=== PATIENT | male | born 1990 | race Caucasian/White ===

== ENCOUNTER 2019-05-15 10:18 | Emergency (ER) | payer OTHER ==
[~2019-05-15] VITALS: Ht 167.6 cm; Wt 72.8 kg
[2019-05-15 12:37] LABS: INFLUENZA A AMPLIFICATION NEGATIVE (NEGATIVE); INFLUENZA B AMPLIFICATION NEGATIVE (NEGATIVE)
[2019-05-15 13:41] VITALS: BP 130/81
[2019-05-15] MEDS ORDERED: AUGM875T28 PO (13:50)
== END 2019-05-15 14:03 | disposition home or self-care (01) ==
LOC: M ED 10:18
DX: J01.90 Acute sinusitis, unspecified (principal); M79.10 Myalgia, unspecified site; R68.83 Chills (without fever); F17.210 Nicotine dependence, cigarettes, uncomplicated

== ENCOUNTER 2019-06-04 10:02 | Emergency (ER) | payer OTHER ==
[~2019-06-04] VITALS: Ht 167.6 cm; Wt 71.5 kg
[~2019-06-04 10:02] MED LIST: AUGM875T28 PO
[2019-06-04] MEDS ORDERED: AFRIN NASAL SPRAY (10:09)
--- NOTE | 2019-06-04 11:47 | REP ---
Chest x-ray: Two views. History: Cough x2 weeks . Comparison study: No comparison study . Findings: The lungs are well inflated and free of infiltrate. The pleural angles are sharp. The heart size is normal. Pulmonary vasculature is not increased. No significant bony abnormality is seen. Impression: Negative chest x-ray. Electronically Signed by Jaime Patel MD 06/04/2019 11:38 A
[2019-06-04 12:08] LABS: INFLUENZA A AMPLIFICATION NEGATIVE (NEGATIVE); INFLUENZA B AMPLIFICATION NEGATIVE (NEGATIVE)
[2019-06-04 12:50] LABS: BASO # 0.1 10^3/uL (0.0-0.2); BASO % 0.5 % (0.0-1.0); EOS # 0.4 10^3/uL (0.0-0.5); EOS % 3.8 % (0.0-3.0); HEMATOCRIT 44.2 % (42.0-52.0); HEMOGLOBIN 14.6 g/dl (13.5-17.5); LYMPH # 3.2 10^3/uL (1.5-5.0); LYMPH % 30.2 % (24.0-44.0); MEAN CORPUSCULAR HEMOGLOBIN 28.9 pg (27.0-33.0); MEAN CORPUSCULAR VOLUME 87.4 fl (80.0-96.0); MONO # 0.7 10^3/uL (0.0-0.8); MONO % 6.3 % (0.0-5.0); NEUTROPHILS # 6.2 10^3/uL (1.5-8.5); NEUTROPHILS % 58.7 % (36.0-66.0); PLATELET COUNT, AUTOMATED 257 10^3/uL (150-450); RED BLOOD COUNT 5.06 10^6/uL (4.30-6.10); WHITE BLOOD COUNT 10.5 10^3/uL (4.0-10.0)
[2019-06-04 13:28] LABS: MONO REFLEX EBV COMP NEGATIVE (NEGATIVE)
[2019-06-04 13:58] VITALS: BP 122/85
[2019-06-05 14:09] LABS: EBV AB TO NUCLEAR ANTIGEN 79.6 U/mL (0.0-17.9); EBV VIRAL CAPSID AG IgM <36.0 U/mL (0.0-35.9)
== END 2019-06-04 13:59 | disposition home or self-care (01) ==
LOC: M ED 10:02
DX: J06.9 Acute upper respiratory infection, unspecified (principal); B34.9 Viral infection, unspecified; F17.210 Nicotine dependence, cigarettes, uncomplicated

== ENCOUNTER 2020-01-19 21:11 | Emergency (ER) | payer OTHER ==
[~2020-01-19] VITALS: Ht 167.6 cm; Wt 66.3 kg
[~2020-01-19 21:11] MED LIST changes: +AFRIN NASAL SPRAY
[2020-01-19] MEDS ORDERED: ACET1TAB16 (21:35)
--- NOTE | 2020-01-19 22:21 | REPVR ---
PROCEDURE INFORMATION: Exam: XR Left Knee Exam date and time: 01/19/2020 10:08 PM Age: 29 years old Clinical indication: Other: Post op pain; Prior surgery; Additional info: Knee surgery with pain now TECHNIQUE: Imaging protocol: XR Left knee. Views: 1 or 2 views. COMPARISON: No relevant prior studies available. FINDINGS: Bones/joints: No acute fracture or dislocation is identified. There is no osseous erosion or cortical destruction. Small sclerotic density in the distal femur is probably a bone island. Soft tissues: Mild fullness of the soft tissues in the suprapatellar region is noted. The soft tissues appear otherwise grossly unremarkable. IMPRESSION: Mild suprapatellar soft tissue fullness suggesting effusion and/or synovial hypertrophy. Electronically signed by: Jose Mckay On 01/19/2020 22:21:01 PM
[2020-01-19 23:46] LABS: BASO % 0.2 % (0.0-1.0); EOS # 0.2 10^3/uL (0.0-0.5); EOS % 2.2 % (0.0-3.0); HEMATOCRIT 44.5 % (42.0-52.0); HEMOGLOBIN 14.7 g/dl (13.5-17.5); LYMPH # 2.8 10^3/uL (1.5-5.0); LYMPH % 28.9 % (24.0-44.0); MEAN CORPUSCULAR HEMOGLOBIN 29.5 pg (27.0-33.0); MEAN CORPUSCULAR VOLUME 89.2 fl (80.0-96.0); MONO # 0.6 10^3/uL (0.0-0.8); MONO % 6.5 % (0.0-5.0); NEUTROPHILS # 5.9 10^3/uL (1.5-8.5); NEUTROPHILS % 61.7 % (36.0-66.0); PLATELET COUNT, AUTOMATED 244 10^3/uL (150-450); RED BLOOD COUNT 4.99 10^6/uL (4.30-6.10); WHITE BLOOD COUNT 9.5 10^3/uL (4.0-10.0)
--- NOTE | 2020-01-20 00:01 | REPVR ---
PROCEDURE INFORMATION: Exam: US Duplex Left Lower Extremity Veins, Limited Exam date and time: 01/19/2020 11:49 PM Age: 29 years old Clinical indication: Pain; Leg, lower; Left; Prior surgery; Surgery date: 3-7 days post-operative; Surgery type: Knee; Additional info: R/O dvt/surgery 01/11 TECHNIQUE: Imaging protocol: Real-time Duplex ultrasound of the Left Lower Extremity with 2-D salgado scale, color Doppler flow and spectral waveform analysis with image documentation. Limited exam focused on the left lower extremity veins. COMPARISON: No relevant prior studies available. FINDINGS: Left deep veins: Unremarkable. The common femoral, femoral, proximal profunda femoral and popliteal veins are patent without thrombus. Normal Doppler waveforms. Normal compressibility and/or augmentation response. Left superficial veins: Unremarkable. Saphenofemoral junction is patent without thrombus. Soft tissues: Unremarkable. IMPRESSION: No deep venous thrombus demonstrated in the left lower extremity. Electronically signed by: Jose Mckay On 01/20/2020 00:00:49 AM
[2020-01-20 00:06] LABS: BLOOD UREA NITROGEN 10 MG/DL (7-18); C REACTIVE PROTEIN QUANTITATIV 0.88 MG/DL (0.00-0.30); CARBON DIOXIDE LEVEL 29 MEQ/L (21-32); CHLORIDE LEVEL 107 MEQ/L (98-107); CREATININE FOR GFR 0.83 MG/DL (0.70-1.30); ERYTHROCYTE SEDIMENTATION RATE 2 mm/hr (0-15); GLOMERULAR FILTRATION RATE > 60.0 (>60); GLUCOSE, FASTING 101 MG/DL (70-100); POTASSIUM SERUM 3.6 MEQ/L (3.5-5.1); SODIUM LEVEL 140 MEQ/L (136-145)
[2020-01-20 00:35] VITALS: BP 129/78
== END 2020-01-20 00:36 | disposition home or self-care (01) ==
LOC: M ED 21:11
DX: G89.18 Other acute postprocedural pain (principal); M25.562 Pain in left knee; M79.89 Other specified soft tissue disorders; F90.9 Attention-deficit hyperactivity disorder, unspecified type; F43.10 Post-traumatic stress disorder, unspecified; F41.9 Anxiety disorder, unspecified; G47.00 Insomnia, unspecified; F17.200 Nicotine dependence, unspecified, uncomplicated

== ENCOUNTER 2020-03-20 21:24 | Emergency (ER) | payer OTHER ==
[~2020-03-20] VITALS: Ht 167.6 cm; Wt 66.0 kg
[~2020-03-20 21:24] MED LIST changes: +ACET1TAB16
[2020-03-20 21:25] VITALS: BP 118/77
== END 2020-03-20 23:09 | disposition left against medical advice (07) ==
LOC: M ED 21:24
DX: Z53.21 Procedure and treatment not carried out due to patient leaving prior to being seen by health care provider (principal)

== ENCOUNTER 2020-07-17 13:30 | Emergency (ER) | payer OTHER ==
[~2020-07-17] VITALS: Ht 167.6 cm; Wt 68.9 kg
[2020-07-17] MEDS ORDERED: TRAM50TA2 (13:39)
[2020-07-17] MEDS ORDERED: NS 1,000 ML IV ONE (14:05)
[2020-07-17] MEDS ORDERED: GI COCKTAIL 50ML BTL(HYOSCYAMINE/MAALOX/LIDOCAINE VISCOUS)(1:3:1) PO ONE (14:05)
--- NOTE | 2020-07-17 14:32 | REP ---
INDICATION: Abdominal Pain. COMPARISON: A PA and lateral chest dated 06/04/2019. TECHNIQUE: PA view of the chest and supine upright views of the abdomen FINDINGS: PA chest: The lung butler are clear. Cardiac size is normal. The patrica, mediastinum, and skeletal structures are unremarkable. There is no free subdiaphragmatic air. There is no change from 06/04/2019. Negative PA chest. Supine upright abdomen: There are no comparisons. The bowel gas pattern is normal. There are no calcifications. The skeletal structures and soft tissues otherwise are unremarkable. Negative supine and upright abdomen IMPRESSION: Negative PA chest. Normal bowel gas pattern. <Electronically signed by Girish Julio > 07/17/20 [id number]
[2020-07-17 15:04] LABS: BASO # 0.1 10^3/uL (0.0-0.2); BASO % 0.6 % (0.0-1.0); EOS # 0.2 10^3/uL (0.0-0.5); EOS % 2.3 % (0.0-3.0); HEMATOCRIT 46.8 % (42.0-52.0); HEMOGLOBIN 15.3 g/dl (13.5-17.5); LYMPH # 2.1 10^3/uL (1.5-5.0); MEAN CORPUSCULAR HEMOGLOBIN 29.5 pg (27.0-33.0); MEAN CORPUSCULAR HGB CONC 32.7 g/dl (32.0-36.5); MEAN CORPUSCULAR VOLUME 90.3 fl (80.0-96.0); MONO # 0.6 10^3/uL (0.0-0.8); MONO % 7.3 % (2.0-8.0); NEUTROPHILS % 63.3 % (36.0-66.0); PLATELET COUNT, AUTOMATED 232 10^3/uL (150-450); RED BLOOD COUNT 5.18 10^6/uL (4.30-6.10); WHITE BLOOD COUNT 7.9 10^3/uL (4.0-10.0)
[2020-07-17 15:31] LABS: ALT/SGPT 25 U/L (12-78); BILIRUBIN,DIRECT 0.2 MG/DL (0.0-0.2); BILIRUBIN,TOTAL 0.5 MG/DL (0.2-1.0); BLOOD UREA NITROGEN 6 MG/DL (7-18); CALCIUM LEVEL 9.1 MG/DL (8.5-10.1); CARBON DIOXIDE LEVEL 29 MEQ/L (21-32); CHLORIDE LEVEL 108 MEQ/L (98-107); CK-MB VALUE MASS 1.2 NG/ML (<3.6); CPK CREATINE PHOSPHOKINASE 127 U/L (39-308); CREATININE FOR GFR 0.71 MG/DL (0.70-1.30); GLOMERULAR FILTRATION RATE > 60.0 (>60); GLUCOSE, FASTING 83 MG/DL (70-100); LIPASE 142 U/L (73-393); MB/CK RELATIVE INDEX 0.94 (< OR =4); POTASSIUM SERUM 4.1 MEQ/L (3.5-5.1); SODIUM LEVEL 142 MEQ/L (136-145); TOTAL PROTEIN 7.1 GM/DL (6.4-8.2); TROPONIN I < 0.02 NG/ML (< 0.10)
[2020-07-17 16:18] VITALS: BP 126/81
--- NOTE | 2020-07-18 17:29 | ECGEPIP ---
[facility] - ED Test Date: 2020-07-17 Pat Name: LALO MORENO Department: Room: - Gender: Male Block Hand: ORQUIDEA : 1990 Requested By: CAT MEJIA Order Number: [id number] Reading MD: Era Adam Measurements Intervals [place] Rate: 70 P: 26 TN: 138 QRS: 15 QRSD: 92 T: 10 QT: 364 QTc: 393 Interpretive Statements Normal sinus rhythm No prior Electronically Signed on 07-18-2020 17:29:47 EDT by Era Adam
== END 2020-07-17 16:29 | disposition home or self-care (01) ==
LOC: M ED 13:30
DX: R10.10 Upper abdominal pain, unspecified (principal); R07.1 Chest pain on breathing; Z87.442 Personal history of urinary calculi

== ENCOUNTER 2020-11-27 13:11 | Emergency (ER) | payer OTHER ==
[~2020-11-27] VITALS: Ht 175.3 cm; Wt 72.4 kg
[~2020-11-27 13:11] MED LIST changes: +TRAM50TA2
[2020-11-27 15:13] LABS: BASO % 0.3 % (0.0-1.0); EOS # 0.2 10^3/uL (0.0-0.5); EOS % 1.4 % (0.0-3.0); HEMATOCRIT 46.9 % (42.0-52.0); HEMOGLOBIN 15.5 g/dl (13.5-17.5); LYMPH # 2.1 10^3/uL (1.5-5.0); LYMPH % 13.9 % (24.0-44.0); MEAN CORPUSCULAR HEMOGLOBIN 29.9 pg (27.0-33.0); MEAN CORPUSCULAR VOLUME 90.4 fl (80.0-96.0); MONO # 0.8 10^3/uL (0.0-0.8); MONO % 5.4 % (2.0-8.0); NEUTROPHILS # 11.6 10^3/uL (1.5-8.5); NEUTROPHILS % 78.3 % (36.0-66.0); PLATELET COUNT, AUTOMATED 251 10^3/uL (150-450); RED BLOOD COUNT 5.19 10^6/uL (4.30-6.10); WHITE BLOOD COUNT 14.8 10^3/uL (4.0-10.0)
[2020-11-27 15:39] LABS: ALT/SGPT 22 U/L (12-78); BILIRUBIN,DIRECT 0.2 MG/DL (0.0-0.2); BILIRUBIN,TOTAL 0.6 MG/DL (0.2-1.0); BLOOD UREA NITROGEN 12 MG/DL (7-18); CALCIUM LEVEL 9.1 MG/DL (8.5-10.1); CARBON DIOXIDE LEVEL 29 MEQ/L (21-32); CHLORIDE LEVEL 108 MEQ/L (98-107); CREATININE FOR GFR 0.81 MG/DL (0.70-1.30); GLOMERULAR FILTRATION RATE > 60.0 (>60); GLUCOSE, FASTING 92 MG/DL (70-100); LIPASE 117 U/L (73-393); POTASSIUM SERUM 4.2 MEQ/L (3.5-5.1); SODIUM LEVEL 142 MEQ/L (136-145); TOTAL PROTEIN 6.8 GM/DL (6.4-8.2)
[2020-11-27 18:22] VITALS: BP 153/96
== END 2020-11-27 18:23 | disposition home or self-care (01) ==
LOC: M ED 18:13
DX: R10.9 Unspecified abdominal pain (principal); D72.829 Elevated white blood cell count, unspecified; G89.29 Other chronic pain; M54.9 Dorsalgia, unspecified; F17.210 Nicotine dependence, cigarettes, uncomplicated; Z87.442 Personal history of urinary calculi; Z87.19 Personal history of other diseases of the digestive system